=== PATIENT | male | born 1945 | race Caucasian/White ===

== ENCOUNTER → 2019-07-12 | Outpatient (CLI) | payer OTHER ==
--- NOTE | 2019-07-12 09:41 | CTL ---
ADDENDUM: Patient brought back for repeat imaging to include entire lung bases. No suspicious nodules are present. Lung RADS 1 Negative EXAMINATION TYPE: CT Low Dose Lung DATE OF EXAM ORDERED: 07/12/2019 HISTORY: Long-term tobacco use. Lung cancer screening CT DLP: 73.[address] CTDI: 2.1 mGy Automated exposure control for dose reduction was used. SCREENING VISIT: Initial study COMPARISON: Chest x-ray May 24, 2015 TECHNIQUE: Low dose computed tomography scan was performed through the chest at 1 mm thick sections and reconstructed images in the coronal plane at [address] DIAGNOSTIC QUALITY: Limited, but interpretable Exam note is suboptimal as the entire lung bases not included. FINDINGS: LUNG NODULES: None. LUNGS: COPD: Severity: Mild Fibrosis: Severity: Minimal Lymph nodes: Borderline enlarged right tracheobronchial lymph node measuring 1.5 x 1.0 cm axial image 25 series 5. Other findings: None BILATERAL PLEURAL SPACE: Effusion: None Calcification: None Thickening: None Pneumothorax: None HEART: Heart Size: Normal Coronary calcification: Moderate to severe with possible coronary stents, correlate clinically. Pericardial effusion: None. OTHER FINDINGS: Upper abdomen: No suspicious finding. Bony thorax: [id number] multilevel spurring. Slight dextroconvex scoliotic curvature. Slight pectus excavatum deformity redemonstrated. Supraclavicular region: No suspicious abnormality. Other: Ascending aorta measures up to 4.2 cm in diameter axial image 32 series 5. IMPRESSION: Suboptimal study in the entire lung bases not included. No suspicious nodules in the scanned portion of both lungs FOLLOW UP CT CHEST RECOMMENDATION: Repeat imaging of the lung bases. CT LUNG RAD: Lung Rad 0 Incomplete Recommendation: Correlate clinically for additional coronary risk factors as there is moderate to severe three-vessel coronary artery calcification. Note is made of 4.2 cm ascending aortic aneurysm. MTDD
== END | disposition home or self-care (01) ==
LOC: RADCTMAIN 06:59
PROVIDERS: ATTEND Nurse Practitioner Acute Care
DX: Z13.83 Encounter for screening for respiratory disorder NEC (principal); F17.210 Nicotine dependence, cigarettes, uncomplicated